=== PATIENT | male | born 1970 | race Caucasian/White ===

== ENCOUNTER → 2020-06-29 | Outpatient (CLI) | payer BC ==
--- NOTE | 2020-06-29 21:46 | CT ---
EXAMINATION TYPE: CT cervical spine wo con DATE OF EXAM: 06/29/2020 COMPARISON: None HISTORY: cervical radiculopathy CT DLP: 537.9 mGycm CONTRAST: None CT of the cervical spine is performed in the axial plane at 2 mm thick sections. Reconstructed image s in the coronal, and sagittal plane are reviewed on the computer. No acute fractures are evident. Vertebral body alignment is straightened. Prevertebral space is normal. Posterior spinal lamellar marielos e is preserved.. There is some mild disc space narrowing of C5-6 C6-7. Small endplate spurs are noted at C5-6. Anterio r vertebral body spurring is present C4, C5, and C6. Vertebral body heights are preserved. No spinal canal stenosis is evident Uncovertebral joint hypertrophy is present with moderate left foraminal narrowing at C4-5. Mild bilat eral foraminal narrowing is present C5-6 and more severe foraminal narrowing is present C6-7, greater on the right. IMPRESSIONS: 1. No acute osseous abnormality. 2. Foraminal narrowing greatest at C6-7 on the right. Additional more moderate foraminal narrowing is present C4-5 and C5-6. 3. Straightening of the cervical spine
== END | disposition home or self-care (01) ==
LOC: RADCTMAIN 06:50
PROVIDERS: ATTEND Family Medicine
DX: M48.02 Spinal stenosis, cervical region (principal); M54.12 Radiculopathy, cervical region
CPT/HCPCS: 72125